=== PATIENT | female | born 1985 | race Caucasian/White ===

== ENCOUNTER → 2021-07-12 | Outpatient (CLI) | payer BC ==
[~2021-07-12] MED LIST: AMOXIL500 MG PO; ANAPROX DS550 MG PO; BACTROBAN CREAM15 GM T; LEXAPRO10 MG PO; NIZORAL 2%15 GM PO; PRENATAL1 TA1 PO; ULTRAM50 MG
== END | disposition home or self-care (01) ==
LOC: COVID19 16:32
PROVIDERS: ATTEND Student in an Organized Health Care Education/Training Program
DX: U07.1 COVID-19 (principal)